=== PATIENT | female | born 1965 | race Caucasian/White ===

== ENCOUNTER 2024-09-20 10:33 | Emergency (ER) | payer MEDICARE, MEDICAID | END 2024-09-20 12:46 | disposition home or self-care (01) | LOC: VM.ED 10:33 | DX: S43.401A Unspecified sprain of right shoulder joint, initial encounter (principal); S20.219A Contusion of unspecified front wall of thorax, initial encounter; J44.89 Other specified chronic obstructive pulmonary disease; E78.00 Pure hypercholesterolemia, unspecified; E66.9 Obesity, unspecified; E03.9 Hypothyroidism, unspecified; Z91.030 Bee allergy status; Z79.890 Hormone replacement therapy; Z79.899 Other long term (current) drug therapy; Z90.49 Acquired absence of other specified parts of digestive tract; Z90.710 Acquired absence of both cervix and uterus; Z68.41 Body mass index [BMI] 40.0-44.9, adult; W18.2XXA Fall in (into) shower or empty bathtub, initial encounter | CPT/HCPCS: 71101-RT; 73030-RT; 99283; 99284 ==